=== PATIENT | female | born 1970 | race Caucasian/White ===

== ENCOUNTER 2018-08-14 14:05 | Inpatient (IN) ==
[2018-08-14] MEDS ORDERED: MORPHINE SULFATE 4 MG/1 ML IVP ONE (14:21)
[2018-08-14] MEDS ORDERED: ONDANSETRON 4 MG/2 ML VIAL IVP ONE (14:21)
[2018-08-14] MEDS ORDERED: Sodium Chloride 0.9% 1,000 ML PRIMARY IV ONE (14:21)
[2018-08-14] MEDS ORDERED: FAMOTIDINE 20 MG/2 ML VIAL IVP ONE (14:21)
--- NOTE | 2018-08-14 14:50 | PDOC ---
Abdomen/Flank HPI - General Chief Complaint: Abdomen Pain Stated Complaint: abd pain Date Seen by Provider: 08/14/18 Time Seen by Provider: 14:10 Source: POSITIVE: Patient Exam Limitations: POSITIVE: No limitations Nurse's Notes Reviewed & Considered: Yes - History of Present Illness Initial Comments: The patient is a 48-year-old female who presents to the emergency department with complaints of increased abdominal pain. She has a known large pelvic mass assumed to be ovarian cancer. She also has associated ascites. She did have a paracentesis done here several weeks ago. She had her first dose of chemotherapy on Tuesday of last week. For the past couple of days she has had progressively worsening generalized abdominal pain. Her pain is primarily in the upper abdomen and then on both sides. She does have continued abdominal distention. She denies fevers or chills. She has not had any vomiting although she does have nausea and decreased appetite. She states that she has not really been able to eat or drink anything the past several days. She reports decreased urination and bowel movements the past several days which she attributed to her decreased intake. She states that her current pain is different and more intense than the pain associated with her ascites prior to her previous paracentesis. - Patient Home Medications Home Medications: Home Medications oxycodone-acetaminophen 5 mg-325 mg tablet 1 tab PO Q6H PRN #15 tab 08/09/18 - Patient Allergies Allergies/Adverse Reactions: Allergies Allergy/AdvReac Type Severity Reaction Status Date / Time Penicillins Allergy Severe Anaphylaxis Verified 08/14/18 18:29 Past Medical History - heen HEENT History: Denies History Cardiovascular History: Denies History Respiratory History: Denies History Gastrointestinal History: Denies History Genitourinary History: Denies History Endocrine History: Denies History, Other (please comment) Additional Endocrine History: stated-"hypoglycemia" Musculoskeletal History: Back Injury Prosthesis or Implant: No Additional Musculoskeletal History: IN MAY 2011 PT HAD NECK INJURY WHEN SHE FELL OFF A LADDER. Neurological History: Denies History Blood Disorders: Denies History Psychiatric History: Denies History History of Sexually Transmitted Diseases: No Female Reproductive History: Denies History LMP: 08/11/18 Obstetrical History: Denies History Cancer History: Denies History In Past Year Been Physically Harmed or Verbally Threatened: No History of MDRO: No History of Other Communicable Diseases: No Tobacco Use: Current Every Day Smoker Alcohol Use: Rarely In the Past 12 Months, Have Used or Abuse Any Substance: None Previous Surgical History: Yes Type / Date of Surgery: R KNEE, scope Anesthesia Reactions: No Malignant Hyperthermia: No Significant Family History: No pertinent family hx Past Medical History Reviewed: Reviewed - No Changes ROS - Limitations ROS Limitations: No Limitations Constitution: DENIES: Chills, Fever Cardiovascular: REPORTS: Denies Cardiac Symptoms Respiratory: REPORTS: Denies Resp Symptoms Neurological: REPORTS: Denies Neuro Symptoms Gastrointestinal: REPORTS: Abdominal Pain, Nausea. DENIES: Vomitting, Diarrhea, Black Stools, Bloody Stools, Constipation Musculoskeletal: REPORTS: Denies MS Symptoms Genitourinary: DENIES: Dysuria, Flank Pain Eyes: REPORTS: Denies Symptoms ENT: REPORTS: Denies Symptoms Skin: REPORTS: Rash Abdominal/Flank Pain PE - General Appearance General Appearance: POSITIVE: Alert, Cooperative, No Acute Distress - HEENT HEENT: POSITIVE: Head Inspection Nml, Eyes Inspection Nml, Ears Inspection Nml, Nose Inspection Nml, Pharynx Inspect. Nml, PERRL, Dry Mucous Membranes - Neck Neck: POSITIVE: Normal Inspection - Respiratory Respiratory: POSITIVE: No Respiratory Distress, Breath Sounds Normal - Cardiovascular Cardiovascular: POSITIVE: Regular Rate and Rhythm, Heart Sounds Normal Peripheral Pulses: Dorsalis-pedis (R): 2+, Dorsalis-pedis (L): 2+ - Abdomen Additional Abdominal Details: Her abdomen is distended and bowel sounds are hypoactive. She does have some generalized abdominal tenderness without guarding - Skin Skin: POSITIVE: Intact, No Rash - Extremities Extremity: Normal ROM: (All Extremities), Normal Inspection: (All Extremities) - Neurological Neurological: POSITIVE: Oriented X3, Motor Normal, Sensation Normal Abdomen Progress - Results Reviewed by me Xrays/CTs/US Reviewed by me: Yes Discussed with Radiologist: Yes Radiology Findings: CT scan of the abdomen and pelvis with IV contrast shows inc reasing bilateral pleural effusions, continued significant ascites and large pelvic mass. There is some increased gas in the large bowel compared to previous study with no other acute findings per radiologist. Lab Results Reviewed by Me: Yes CBC and BMP: 08/14/18 14:43 08/14/18 14:43 - Patient's Progress MDM / ED Course: The patient was quite uncomfortable on arrival. An IV was established and the patient received 1 L bolus of normal saline as well as 4 mg of morphine and 4 mg of Zofran IV. Her pain was slightly improved however after CT her pain returned and she received a dose of Dilaudid 1 mg IV. Her blood work reveals a normal white count and her CRP is 7.3, her CRP was 8.8 a month ago. Liver enzymes and pancreas enzymes are normal. CT scan of her abdomen and pelvis reveals increasing bilateral pleural effusions, continued significant ascites and large pelvic mass with some increased air in the colon compared to previous study with no other acute findings per radiologist. Her increased pain is likely related to the recurrent ascites and possible SBP. I did discuss the patient with the on-call gynecologic oncologist in [place]. He recommended that the patient undergo paracentesis which he thought could be done at our facility rather than having the patient come to [place]. I did discuss current findings with the patient and her . She would rather stay here in [place] if possible. I did discuss the patient with Dr. Watson and he is agreed to admit the patient for [facility] evaluation and treatment. - Consult Counseled: POSITIVE: Patient, Family, RE: Lab Results, RE: Radiology Results, RE: DX Patient Care Time - Estimated PCT Patient Care Time (In Minutes): 45 Vital Signs - Recent Vital Signs Vital Signs: Vital Signs (Last 8 hours) Temp Pulse Resp BP Pulse Ox 08/14/18 14:05 96.8 F 114 H 22 106/87 93 - VS Reviewed Vital Signs Reviewed: Yes Discharge Clinical Impression: Abdominal pain, Ascites, Pelvic mass Discharge Disposition: Admit to Inpatient Condition: Fair Date Decision to Admit to Inpatient: 08/14/18 Time Decision to Admit to Inpatient: 17:45
[2018-08-14 14:58] LABS: BASOPHILS # (AUTO) 0.01 10*3/UL; BASOPHILS % (AUTO) 0.1 % (0-1); EOSINOPHILS # (AUTO) 0.05 10*3/UL; EOSINOPHILS % (AUTO) 0.6 % (0-8); Hematocrit [HCT] 40.7 % (37.0-47.0); Hemoglobin [HGB] 12.9 g/dL (12.0-16.0); LYMPHOCYTES # (AUTO) 0.91 10*3/uL; MEAN CORPUSCULAR HEMOGLOBIN 24.6 PG (27-31); MEAN CORPUSCULAR HGB CONC 31.7 g/dL (33-37); MEAN CORPUSCULAR VOLUME 77.7 FL (81-99); MEAN PLATELET VOLUME 10.7 FL (7.4-12.2); MONOCYTES % (AUTO) 1.1 % (5-15); NEUTROPHILS # (AUTO) 7.85 10*3/UL; NEUTROPHILS % (AUTO) 87.9 % (50-80); RED BLOOD COUNT 5.24 10^6/uL (4.20-5.40)
[2018-08-14 15:08] LABS: PLATELET MORPHOLOGY COMMENT NORMAL MORPHOLOGY (NORM); RBC MORPHOLOGY COMMENT NORMAL MORPHOLOGY (NORM); WBC MORPHOLOGY COMMENT NORMAL MORPHOLOGY (NORM)
[2018-08-14 15:11] LABS: BLOOD UREA NITROGEN 10 mg/dL (7-22); LIPASE 33 IU/L (23-300); SERUM ALBUMIN 3.4 g/dL (3.5-4.8)
--- NOTE | 2018-08-14 16:22 | DI ---
CT Abdomen/Pelvis W Contrast,08/14/2018 2:22 PM: Clinical History: Abdominal pain Previous Exam: 07/19/2018 Findings: Multiple helically acquired CT images are obtained through the abdomen and pelvis following intraveno us administration of 75 cc of Isovue 300, and demonstrates large lateral pleural effusions much large r than on the comparison exam. Massive ascites. This was also seen on the prior exam. Large and small bowel loops are not well evaluated on this exam due to the ascites. There are what ap pear to be large pelvic cystic masses which were also seen on the prior exam. There are a few prominent pelvic lymph nodes which are stable from the prior exam. The mesentery is not well evaluated. The gallbladder appears grossly normal. The liver is stable with mild irregular contour. The spleen is normal. There is a small hiatal hernia. Impression: 1. Stable complex solid and cystic mass within the deep pelvis worrisome for ovarian neoplasm. 2. Stable massive ascites. 3. Enlarging bilateral pleural effusions.
[2018-08-14] MEDS ORDERED: HYDROmorphone 2 MG/1 ML IVP ONE (16:27)
[2018-08-14] MEDS ORDERED: LIDOCAINE 2% 20 MG/ML - 20 ML VIAL ONE (17:59)
[2018-08-14] MEDS ORDERED: DOCUSATE 100 MG CAPSULE PO PRN (18:25)
[2018-08-14] MEDS ORDERED: ACETAMINOPHEN 325 MG TABLET PO PRN (18:25)
[2018-08-14] MEDS ORDERED: CALCIUM CARBONATE 500 MG (TUMS) CHEWABLE TABLET PO PRN (18:25)
[2018-08-14] MEDS ORDERED: ONDANSETRON 4 MG/2 ML VIAL IVP PRN (18:25)
[2018-08-14] MEDS ORDERED: oxyCODONE-ACETAMINOPHEN 5-325 TAB PO PRN (18:25)
[2018-08-14] MEDS ORDERED: LIDOCAINE W/ SODIUM BICARB 0.5 ML SYR SUBD PRN (18:25)
[2018-08-14 19:09] LABS: WBC, BODY FLUID 2.898 10*3/uL
[2018-08-14] MEDS ORDERED: POTASSIUM CHLORIDE 20 MEQ TAB PO ONE (19:16)
--- NOTE | 2018-08-14 19:27 | PDOC ---
HPI - History of Present Illness Date of Service: 08/14/18 Time of Service: 19:22 Chief Complaint: Abdominal pain and trouble breathing History of Present Illness: This very pleasant 48-year-old female who unfortunately has ovarian cancer. She came in tonight complaining of abdominal pain and shortness of breath that started yesterday. Said to prior paracentesis procedures and has had bilateral thoracentesis procedures for what is presumed to be malignant ascites. She is on pain medications only. She started chemotherapy on Tuesday with a carboplatin and it is expected that she'll have about 6 treatments prior to debulking surgery. She is expected to do chemotherapy about monthly at this time. She has her treatments and physicians treating her cancer down in [place]. She states nothing really is controlled her pain, except Dilaudid here in the emergency room. She is willing to undergo paracentesis again. She denies any fevers. She did note that she had spasms in her abdomen. History is corroborated with her significant other. Past Medical History Medical History: 1. Ovarian cancer with probable malignant ascites. Surgical History: 1. Pertinent Family History: No history of ovarian cancer in the family. Past Social History: Used to smoke, quit recently. Does not drink alcohol. Has a significant other. Lives in [place], [place]. Has 2 children described as healthy. She is helping raise her granddaughter as her dad works shift work in [place]. Tobacco Use: Former Smoker Do you dip or chew tobacco: No In the Past 12 Months, Have Used or Abuse Any of the Following Substance: None Alcohol Use: None Medication / Allergies Home Medications: Home Medications Medication Instructions Recorded Confirmed Type oxycodone-acetaminophen 5 mg-325 1 tab PO Q6H PRN #15 tab 08/09/18 08/14/18 Rx mg tablet Allergies/Adverse Reactions: Allergies Allergy/AdvReac Type Severity Reaction Status Date / Time Penicillins Allergy Severe Anaphylaxis Verified 08/14/18 18:29 Review of Systems - Review of Systems All Systems: Reviewed & No Additional Complaints Except as Stated (I did a 12 point review systems and outside of the history of present illness the review systems is negative with the exception of the patient stating that she has a history of rheumatoid arthritis but currently does not have any joint pains. She also does state that she has lost weight but cannot quantify the weight loss.) Exam - Vitals Vital Signs: Vital Signs Temperature 98.1 F Temperature Source Temporal Artery Scan Pulse Rate [Pulse Oximeter 109 Right] Pulse Rate 110 Respiratory Rate 20 Blood Pressure [Left Arm] 111/74 Blood Pressure 107/72 Pulse Ox 96 Oxygen Delivery Method Room Air Height 5 ft 2 in Weight 126 lb 8 oz - General General Appearance: No Acute Distress, Cooperative - Head Head Exam: Normal Inspection, Normocephalic, Atraumatic - Eye Eye Exam: POSITIVE: Normal Appearance, No Scleral Icterus - ENT ENT Exam: POSITIVE: Mucous Membranes Moist - Neck Neck Exam: Normal Inspection, No Tenderness, No Lymphadenopathy, No Thyromegaly, JVP is not Raised - Respiratory Respiratory Exam: POSITIVE: Breathing Non Labored, Decreased Breath Sounds (In the bases bilaterally) - Cardiovascular Cardiovascular Exam: POSITIVE: No Murmur, No Clicks, No Gallops, No Rubs, Tachycardia, No JVD - GI/Abdominal GI/Abdominal Exam: POSITIVE: Normal Bowel Sounds, Distended, Positive for Ascites - Rectal Rectal Exam: POSITIVE: Deferred - External Exam: POSITIVE: Deferred - Extremities Extremities Exam: POSITIVE: No Clubbing Present, No Edema Present, No Cyanosis Present - Neurological Neurological Exam: POSITIVE: Alert, Oriented x 3, No Facial Droop, Speech Intact / Clear, Moves All Extremities Equally - Psychiatric Psychiatric Exam: POSITIVE: Normal Affect, Normal Mood Results - Labs CBC and BMP: 08/14/18 14:43 08/14/18 14:43 Additional Lab Results: Laboratory Results 08/14/18 08/14/18 08/14/18 14:43 14:43 14:43 WBC 8.93 RBC 5.24 Hgb 12.9 Hct 40.7 MCV 77.7 L MCH 24.6 L MCHC 31.7 L RDW Std Deviation 45.1 RDW Coeff of Laura 15.9 H Plt Count 489 H MPV 10.7 Immature Gran % (Auto) 0.1 Neut % (Auto) 87.9 H Lymph % (Auto) 10.2 [place] % (Auto) 1.1 L Eos % (Auto) 0.6 Baso % (Auto) 0.1 Immature Gran # (Auto) 0.01 Neut # (Auto) 7.85 Lymph # (Auto) 0.91 [place] # (Auto) 0.10 L Eos # (Auto) 0.05 Baso # (Auto) 0.01 WBC Morphology Comment Normal morphology Plt Morphology Comment Normal morphology RBC Morph Comment Normal morphology Sodium 137 Potassium 3.5 L Chloride 103 Carbon Dioxide 30 Anion Gap 4 L BUN 10 Creatinine 0.5 Estimated GFR > 60 BUN/Creatinine Ratio 20.00 Glucose 83 Calculated Osmolality 281.0 Calcium 8.7 Magnesium 1.9 Total Bilirubin 0.5 AST 22 ALT 26 Alkaline Phosphatase 111 C-Reactive Protein 7.3 H Total Protein 6.6 Albumin 3.4 L Globulin 3.2 Albumin/Globulin Ratio 1.00 L Amylase 74 Lipase 33 Serum HCG, Qual Negative Fluid WBC Fluid RBC Fluid Polynuclear WBCs Fluid Mononuclear WBCs Peritoneal Color Peritoneal Appearance Peritoneal Volume 08/14/18 19:02 WBC RBC Hgb Hct MCV MCH MCHC RDW Std Deviation RDW Coeff of Laura Plt Count MPV Immature Gran % (Auto) Neut % (Auto) Lymph % (Auto) [place] % (Auto) Eos % (Auto) Baso % (Auto) Immature Gran # (Auto) Neut # (Auto) Lymph # (Auto) [place] # (Auto) Eos # (Auto) Baso # (Auto) WBC Morphology Comment Plt Morphology Comment RBC Morph Comment Sodium Potassium Chloride Carbon Dioxide Anion Gap BUN Creatinine Estimated GFR BUN/Creatinine Ratio Glucose Calculated Osmolality Calcium Magnesium Total Bilirubin AST ALT Alkaline Phosphatase C-Reactive Protein Total Protein Albumin Globulin Albumin/Globulin Ratio Amylase Lipase Serum HCG, Qual Fluid WBC 2.898 Fluid RBC 0.003 Fluid Polynuclear WBCs 60 Fluid Mononuclear WBCs 40 Peritoneal Color Yellow Peritoneal Appearance Hazy Peritoneal Volume 20 - Imaging Status: Image Reviewed by Me (I looked at the CT scan of the abdomen and pelvis. There is a lot of ascites. There is a large pelvic mass. It looks complex in structure. The gallbladder wall looks thickened but I think this is more a function of ascites.) Assessment and Plan - Patient Problems (1) Ascites Current Visit: Yes Status: Acute Code(s): R18.8 - Other ascites Qualifiers: Ascites type: malignant Qualified Code(s): R18.0 - Malignant ascites (2) Ovarian cancer Current Visit: Yes Status: Acute Code(s): C56.9 - Malignant neoplasm of unspecified ovary Qualifiers: Laterality: unspecified laterality Qualified Code(s): C56.9 - Malignant neoplasm of unspecified ovary (3) Abdominal pain Current Visit: Yes Status: Acute Code(s): R10.9 - Unspecified abdominal pain - Assessment / Plan Additional Assessment/Plan Details: Admit the patient. I offered paracentesis to the patient both for diagnostic and therapeutic purposes. Given her tense ascites, I suspect that she could have underlying spontaneous bacterial peritonitis although she has no fever and her white count appears normal. She's had 2 prior paracentesis procedures as well as to thoracentesis procedures. I think that if we do paracentesis tonight, her fluid around her lungs may redistribute and we might be able to hold off on thoracentesis of her breathing improves. Pain medications including parenteral pain medications as necessary. I will also continue Percocet and/or hydrocodone for pain relief as necessary. Start antibiotics empirically for spontaneous bacterial peritonitis after paracentesis and treatment course will depend on fluid culture and Gram stain results. Replace potassium Given that the patient is on a [place] and si[place]-based anti-chemotherapy drug, go ahead and check magnesium and potassium in the morning. Plan above discussed with patient and her significant other, and they agreed to the plan above. The patient is full code.
--- NOTE | 2018-08-14 19:34 | PROCEDURE1 ---
Procedure - - Date and Time of Service: 08/14/2018, 1935 Procedure Performed: Paracentesis : Without Imaging Procedure Note: Procedure performed: Paracentesis Consent was obtained from the patient. Indication for procedure was the following: Indication for procedure: Malignant ascites, abdominal pain, tense ascites, question spontaneous bacterial peritonitis. Description of procedure: The patient was prepped and draped in the usual fashion after ultrasound guidance helped us isolate the largest ascites pocket we could find. In this case it was located at left lower quadrant. Chlorhexidine was used to cleanse the skin. Lidocaine was used for local anesthesia. A #10 blade was then used perform a small dermatotomy. A catheter with a surrounding large-bore, blunt tipped needle, was then inserted using a Z-line approach with a 60 mL syringe attached. When withdrawing on the 60 mL syringe, peritoneal fluid was noted and 60 mL was drawn off and then removed along with the large bore needle. The catheter was left in peritoneal space. Peritoneal fluid in the syringe was sent for analysis in a purple top, green top, and red top tube, and Vacutainer bottles. The fluid appeared yellow and turbid on my view. A total of 2800 mL was withdrawn via Vacutainer bottles. The catheter was then withdrawn. The insertion site was dressed with gauze and Tegaderm, with no evidence of peritoneal leak or blood loss. Anesthesia: Local with lidocaine. Estimated blood loss: None Disposition: Patient is admitted to the hospital and remains on the medical floor. Complications: None apparent at time of procedure.
[2018-08-14] MEDS ORDERED: Albumin Human Soln 25% 50 GM/200 ML IV.SOLN IV ONE (19:37)
[2018-08-14] MEDS: cefTRIAXone Inj 2 GM in Sodium Chloride 0.9% 100 ML IV SCH (19:44)
[2018-08-14] MEDS: HYDROcodone-APAP 5 MG -325 MG TABLET PO PRN (19:53)
[2018-08-15] MEDS: HYDROmorphone 2 MG/1 ML IVP PRN ×3 (02:36→16:19)
[2018-08-15] MEDS: HYDROcodone-APAP 5 MG -325 MG TABLET PO PRN ×4 (02:37→23:15)
[2018-08-15 04:44] LABS: BASOPHILS # (AUTO) 0.01 10*3/UL; BASOPHILS % (AUTO) 0.1 % (0-1); EOSINOPHILS # (AUTO) 0.04 10*3/UL; EOSINOPHILS % (AUTO) 0.5 % (0-8); Hematocrit [HCT] 38.6 % (37.0-47.0); Hemoglobin [HGB] 12.1 g/dL (12.0-16.0); LYMPHOCYTES # (AUTO) 0.89 10*3/uL; MEAN CORPUSCULAR HEMOGLOBIN 24.3 PG (27-31); MEAN CORPUSCULAR HGB CONC 31.3 g/dL (33-37); MEAN CORPUSCULAR VOLUME 77.5 FL (81-99); MEAN PLATELET VOLUME 10.8 FL (7.4-12.2); MONOCYTES # (AUTO) 0.08 10*3/UL (0.3-0.8); MONOCYTES % (AUTO) 1.1 % (5-15); NEUTROPHILS % (AUTO) 86.1 % (50-80); RED BLOOD COUNT 4.98 10^6/uL (4.20-5.40)
[2018-08-15 05:37] LABS: PLATELET MORPHOLOGY COMMENT NORMAL MORPHOLOGY (NORM); RBC MORPHOLOGY COMMENT NORMAL MORPHOLOGY (NORM); WBC MORPHOLOGY COMMENT NORMAL MORPHOLOGY (NORM)
[2018-08-15 09:21] LABS: BLOOD UREA NITROGEN 8 mg/dL (7-22); SERUM ALBUMIN 3.2 g/dL (3.5-4.8)
--- NOTE | 2018-08-15 10:30 | DI ---
INDICATION: 48-year-old female with tachycardia and ovarian cancer TECHNIQUE: Multiple, contiguous axial cuts of the chest are obtained before and following the administration of IV contrast. High resolution axial images as well as sagittal and coronal reformatted images are available. COMPARISON: None FINDINGS: The aorta is within normal limits, no aneurysm or dissection. No pulmonary embolus. Moderate-sized bilateral pleural effusions are seen with [id number] bilateral lower lobe subsegmental atelectasis, left greater than right. Prominent mediastinal lymph nodes are seen measuring 8-9 mm in short axis. Debris seen within the trachea. No pneumothorax. Partially imaged ascites is noted with increased soft tissue density in the mesentery suggestive of peritoneal carcinomatosis. The osseous structures are unremarkable. IMPRESSION: 1. No pulmonary embolus. No thoracic aortic aneurysm or dissection. 2. Moderate-sized bilateral pleural effusions with mild to moderate bilateral lower lobe subsegmental atelectasis, left greater than right. 3. Prominent mediastinal lymph nodes. Debris seen in the trachea. 4. Partially imaged ascites with increased soft tissue density in the mesentery, worrisome for peritoneal carcinomatosis.
--- NOTE | 2018-08-15 11:26 | PDOC(PROG) ---
Date of Service: 08/15/18 Time of Service: 11:20 Interval History: no chest pain, breathing much more comfortably. getting abdominal spasms occasionally, no nausea, no vomiting. overall feels much better. Objective : Data - Labs CBC and BMP: 08/15/18 04:15 08/15/18 04:15 Additional Lab Results: 08/15/18 08/15/18 04:15 04:15 Magnesium 1.9 Total Bilirubin 0.6 AST 21 ALT 27 Alkaline Phosphatase 72 Total Protein 5.8 L Albumin 3.2 L Globulin 2.6 Albumin/Globulin Ratio 1.20 L - Imaging CT Scan Status: Image Reviewed by Me (radiologist read as negative for PE. on my view, bilateral effusions, left greater than right.) Objective : Exam - General General Appearance: No Acute Distress, Cooperative Additional General Exam Details: Vital Signs - Last Taken Temperature 97.7 F 08/15/18 11:16 Pulse Rate 114 H 08/15/18 11:16 Respiratory Rate 17 08/15/18 11:16 Blood Pressure 102/75 08/15/18 11:16 Pulse Ox 93 08/15/18 11:16 - Eye Eye Exam: No Scleral Icterus - ENT ENT Exam: Mucous Membranes Moist - Respiratory Respiratory Exam: Breathing Non Labored, Decreased Breath Sounds (in the bases.) - Cardiovascular Cardiovascular Exam: No Murmur, No Clicks, No Gallops, No Rubs, Tachycardia, No JVD - GI/Abdominal GI/Abdominal Exam: Non Tender, Non Distended, Soft Additional GI/Abdominal Exam Details: ascites is improved, resolving. - Extremities Extremities Exam: No Clubbing Present, No Edema Present, No Cyanosis Present - Neurological Neurological Exam: Alert, Oriented x 3, No Facial Droop, Speech Intact / Clear, Moves All Extremities Equally Assessment and Plan - Patient Problems (1) SBP (spontaneous bacterial peritonitis) Current Visit: Yes Status: Suspected Code(s): K65.2 - Spontaneous bacterial peritonitis (2) Ascites Current Visit: Yes Status: Acute Code(s): R18.8 - Other ascites Qualifiers: Ascites type: malignant Qualified Code(s): R18.0 - Malignant ascites (3) Ovarian cancer Current Visit: Yes Status: Acute Code(s): C56.9 - Malignant neoplasm of unspecified ovary Qualifiers: Laterality: unspecified laterality Qualified Code(s): C56.9 - Malignant neoplasm of unspecified ovary (4) Abdominal pain Current Visit: Yes Status: Acute Code(s): R10.9 - Unspecified abdominal pain - Assessment / Plan Additional Assessment/Plan Details: appears to have culture negative ascites with neutrophilic presence suggestive of SBP. plan will be to treat as SBP with IV rocephin for 3 to 5 days, then consider daily antibiotic for prevention of infection. no real studies to guide decision, but typically patients with neutrophilic ascites that is culture negative go on to develop SBP so I think this is the right thing to do await results of fluid albumin for SAAG calculation await cells for cytology no PE hold off on thoracentesis--if malignant ascites, then need to consider pleurodesis to prevent further pleural effusions. discussed with patient at bedside and with SO, they both agree with plan. potassium improved
[2018-08-15] MEDS: CYCLOBENZAPRINE 10 MG TABLET PO PRN (17:14)
[2018-08-15] MEDS: cefTRIAXone Inj 2 GM in Sodium Chloride 0.9% 100 ML IV SCH (18:58)
[2018-08-16] MEDS: CYCLOBENZAPRINE 10 MG TABLET PO PRN (01:30)
[2018-08-16] MEDS: HYDROcodone-APAP 5 MG -325 MG TABLET PO PRN ×2 (04:32→11:46)
[2018-08-16] MEDS: HYDROmorphone 2 MG/1 ML IVP PRN ×2 (04:37→11:47)
[2018-08-16] MEDS ORDERED: Albumin Human Soln 25% 50 GM/200 ML IV.SOLN IV ONE (10:20)
[2018-08-16] MEDS ORDERED: cefTRIAXone Inj 2 GM in Sodium Chloride 0.9% 100 ML IV SCH (10:30)
--- NOTE | 2018-08-16 10:44 | DCSUMMARY ---
Hospitalization Summary Admit Date: 08/14/2018 Discharge Date: 08/16/18 Primary Diagnosis:: spontaneous bacterial peritonitis, culture negative Secondary Diagnosis:: Probable malignant ascites, ovarian cancer Hospital Course: This very pleasant 48-year-old female that came in with increased abdominal pain, in the setting of ovarian cancer with known ascites. To this point, it is not clear whether she has malignant cells in her ascites fluid. She also had bilateral pleural effusions, but after paracentesis, she did not have shortness of breath, nor did she require oxygen during the hospital stay. She's already had thoracentesis in the past, and I feel that it would be best to prove whether this is malignant and if it is, she may be a good candidate for pleurodesis to help prevent further pleural effusions from happening. She had greater than 250 polymorphonuclear cells in her fluid, but it is culture negative. On my review of the literature on this topic of neutrophilic ascites fluid that is culture negative, patient still have a high risk of developing spontaneous bacterial peritonitis in the future. There is a lot of speculation in the literature as to whether or not the presence of white blood cells could indicate that a bacterial infection was present at some point. Given the obscurity and what to do in patients in this setting, I feel that the best practices to prophylax patients and spontaneous bacterial peritonitis if antibiotics can be tolerated. I think this should be done as long as patient has malignant ascites. We will complete 2 more days of Rocephin IV therapy here, she has gotten 2 doses of albumin, and we will prophylax with ciprofloxacin daily. Pain control was achieved with hydrocodone and with Flexeril. Today, the patient has no chest pain, shortness breath, nausea or vomiting. Intermittently, her abdomen does not feel the past but she does not have the same tense ascites that she did on admission and she does feel ready to go home. We did replace potassium. Magnesium was okay as well. She is on a carboplatin based chemotherapy agent. We set her up for IV antibiotics for the next 2 days outpatient. We also have standing orders for paracentesis to be performed in radiology so that we can hopefully avoid admission, particularly in the setting of cancer with active chemotherapy. Assessment and Plan: 1. As per discharge assessments noted 2. Disposition: Patient is discharged home. 3. Condition on discharge, stable and improved. 4. Diet: regular diet 5. Activities: resume normal activities 6. Follow-Up: 1. We have arranged the patient to primary care physician, Dr. Kirk, at the medical office building here in [place]. 2. 7. Medications at the Time of Discharge: Home Medications Medication Instructions Recorded Confirmed Type Ciprofloxacin HCl [Cipro] 500 mg PO DAILY #30 tablet 08/16/18 Rx Cyclobenzaprine HCl [Flexeril] 5 mg PO Q8H PRN #90 tab 08/16/18 Rx HYDROcodone/APAP 5/325 Tab [Kerrick 1 tab PO Q4H PRN #60 tab 08/16/18 Rx 5/325 Tab] cefTRIAXone Inj [Rocephin Inj] 2 gm IV Q24H vial 08/16/18 Rx 8. Time, care, counseling and coordination of care for this discharge is greater than 30 minutes. Exam - Vitals Vital Signs: Vital Signs Temperature 98.3 F Temperature Source Temporal Artery Scan Pulse Rate [Apical] 108 Pulse Rate [Pulse Oximeter 109 Right] Pulse Rate 110 Respiratory Rate 20 Blood Pressure [Right Arm] 103/71 Blood Pressure [Left Arm] 120/77 Blood Pressure 107/72 Pulse Ox 95 Oxygen Flow Rate 4 Oxygen Delivery Method Room Air Height 5 ft 2 in Weight 118 lb - General General Appearance: No Acute Distress, Cooperative - Eye Eye Exam: POSITIVE: No Scleral Icterus - ENT ENT Exam: POSITIVE: Mucous Membranes Moist - Respiratory Respiratory Exam: POSITIVE: Breathing Non Labored, Decreased Breath Sounds (In the bases bilaterally) - Cardiovascular Cardiovascular Exam: POSITIVE: RRR, No Murmur, No Clicks, No Gallops, No Rubs, No JVD - GI/Abdominal GI/Abdominal Exam: POSITIVE: Normal Bowel Sounds, Non Tender, Non Distended, Soft - Extremities Extremities Exam: POSITIVE: No Clubbing Present, No Edema Present, No Cyanosis Present - Neurological Neurological Exam: POSITIVE: Alert, Oriented x 3, No Facial Droop, Speech Intact / Clear, Moves All Extremities Equally Data Peritnent Studies: 08/14/18 08/14/18 08/14/18 14:43 14:43 19:02 WBC Hgb Hct Plt Count Calcium Magnesium Total Bilirubin AST ALT Alkaline Phosphatase Total Protein Albumin Globulin Albumin/Globulin Ratio Amylase 74 Lipase 33 Serum HCG, Qual Negative Fluid WBC 2.898 Fluid RBC 0.003 Fluid Polynuclear WBCs 60 Fluid Mononuclear WBCs 40 Peritoneal Color Yellow Peritoneal Appearance Hazy Peritoneal Volume 20 08/15/18 08/15/18 08/15/18 04:15 04:15 04:15 WBC 7.33 Hgb 12.1 Hct 38.6 Plt Count 474 H Calcium 8.8 Magnesium 1.9 Total Bilirubin 0.6 AST 21 ALT 27 Alkaline Phosphatase 72 Total Protein 5.8 L Albumin 3.2 L Globulin 2.6 Albumin/Globulin Ratio 1.20 L Amylase Lipase Serum HCG, Qual Fluid WBC Fluid RBC Fluid Polynuclear WBCs Fluid Mononuclear WBCs Peritoneal Color Peritoneal Appearance Peritoneal Volume Patient Problems - Patient Problem List (1) SBP (spontaneous bacterial peritonitis) Current Visit: Yes Status: Suspected Code(s): K65.2 - Spontaneous bacterial peritonitis Category: Medical (2) Ascites Current Visit: Yes Status: Acute Code(s): R18.8 - Other ascites Qualifiers: Ascites type: malignant Qualified Code(s): R18.0 - Malignant ascites Category: Medical (3) Ovarian cancer Current Visit: Yes Status: Acute Code(s): C56.9 - Malignant neoplasm of unspecified ovary Qualifiers: Laterality: unspecified laterality Qualified Code(s): C56.9 - Malignant neoplasm of unspecified ovary Category: Medical (4) Abdominal pain Current Visit: Yes Status: Resolved Code(s): R10.9 - Unspecified abdominal pain Category: Medical
[2018-08-18 18:05] VITALS: BP 103/71; RESP 20; TEMP 98.3; O2SAT 95
== END 2018-08-16 14:20 | disposition home or self-care (01) | DRG 372 ==
LOC: ER 14:05 → MED/SURG 18:13
PROVIDERS: ADMIT Family Medicine; ATTEND Family Medicine